=== PATIENT | male | born 1955 | race Caucasian/White ===

== ENCOUNTER → 2018-04-15 | Outpatient (CLI) | payer BC ==
[~2018-04-15] MED LIST: LEVOCETIRIZINE D5 MG PO
--- NOTE | 2018-04-15 15:07 | Diagnostic Imaging Report ---
Thyroid ultrasound History: Thyroid enlargement. Comparison: None Findings: The thyroid echotexture is normal. Vascularity is normal. The right lobe measures 6.0 x 2.0 x 1.5 cm. No evidence of nodule. The left lobe measures 6.6 x 3.2 x 4.3 cm. There is a 4.2 x 2.7 x 3.5 cm solid nodule (2 points). The lesion is heterogeneously isoechoic (1 point), wider than tall (0 points), somewhat ill-defined margins (0 points), and contains no echogenic foci. There is demonstrated doppler flow. The isthmus measures 0.4 cm. No evidence of nodule. Lymph Nodes: No cervical lymph nodes are identified. Parathyroids: Not visualized. IMPRESSION: A 4.2 cm left thyroid nodule is mildly suspicious (TR 3), and FNA is recommended for further evaluation. ACR glossary of thyroid rads TI-RADS 1: No focal lesion. TI-RADS 2: Not suspicious. TI-RADS 3: Mildly suspicious (recommend FNA is greater than or equal to 2.5 cm; follow-up at 1, 3, and 5 years if greater than or equal to 1.5 cm) TI-RADS 4: Moderately Suspicious (recommend FNA is greater than or equal to 1.5 cm; follow-up at 1, 2, 3, and 5 years) TI-RADS 5: Highly suspicious (recommend FNA is greater than or equal to 10 mm) TI-RADS 6: Biopsy-proven malignancy Signed by: Dr. Brian Nieves MD on 04/15/2018 3:03 PM
== END ==
LOC: US 12:23
PROVIDERS: ATTEND Family Medicine
DX: E04.9 Nontoxic goiter, unspecified (principal)
CPT/HCPCS: 76536

== ENCOUNTER → 2018-05-25 | Outpatient (CLI) | payer BC ==
--- NOTE | 2018-05-25 13:44 | Diagnostic Imaging Report ---
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 Blood pressure was monitored at 5 minute intervals. Additional Medications: Lidocaine 1% for local anesthesia Estimated blood loss: Minimal Blood products administered: None Specimens: Fine-needle aspirations x5 Implants: None Consultations: No immediate Condition at completion of procedure: Stable Disposition: Discharged home DISCUSSION: Informed consent was obtained and documented in the medical record after discussion of risks and benefits. The patient was placed in the supine position on the sonographic table. The left cervical region was then prepped and draped in the standard sterile fashion. A suitable percutaneous approach to the left thyroid nodule was identified and 1% lidocaine was infiltrated into the skin and subcutaneous tissues for local anesthesia. Then under continuous sonographic guidance, a total of 5 fine needle aspiration specimens were obtained using 25-gauge needles. Specimens were submitted to on-site cytopathology personnel and adequacy was confirmed. At the conclusion of sampling the needle was removed and a sterile dressing was applied. The patient tolerated the procedure well without immediate complication. FINDINGS: Left thyroid nodule. IMPRESSION: Successful ultrasound-guided fine-needle aspiration of left thyroid nodule as above. Signed by: Dr. Tra Holloway M.D. on 05/25/2018 1:40 PM
== END ==
LOC: US 10:45
DX: E04.1 Nontoxic single thyroid nodule (principal)
CPT/HCPCS: 10005; 88172; 88173; 88305

== ENCOUNTER 2020-08-05 15:04 | Inpatient (IN) | payer BC, MEDICARE ==
[~2020-08-05] VITALS: Ht 182.9 cm; Wt 118.6 kg
[2020-08-05] MEDS: DILTIAZEM HCL 125 ML IV SCH (00:10)
[2020-08-05] MEDS ORDERED: ALBUTEROL/IPRATROPIUM 3 ML NEB NEB STA (16:05)
[2020-08-05] MEDS ORDERED: DILTIAZEM HCL 5 MG/ML 5 ML VIAL IV STA (16:11)
[2020-08-05] MEDS ORDERED: DIGOXIN INJ 0.25 MG/ML 2 ML AMP IV STA (16:11)
[2020-08-05 16:45] LABS: BASOPHILS # (AUTO) 0.2 (0.0-0.1); EOSINOPHILS # (AUTO) 0.3 (0.0-0.4); EOSINOPHILS % 1.8 % (0.0-6.0); HEMATOCRIT 51.6 % (38.2-49.6); HEMOGLOBIN 16.7 g/dL (14.0-18.0); LYMPHOCYTES # (AUTO) 1.3 (1.0-3.2); LYMPHOCYTES % 8.7 % (18.0-39.1); MEAN CORPUSCULAR HEMOGLOBIN 28.1 pg (28-32); MEAN CORPUSCULAR HGB CONC 32.4 g/dL (31-35); MEAN CORPUSCULAR VOLUME 86.7 fL (81-99); MONOCYTES # (AUTO) 2.1 (0.2-0.8); MONOCYTES % 13.8 % (4.4-11.3); NEUTROPHILS # (AUTO) 11.4 (2.1-6.9); NEUTROPHILS % 73.9 % (38.7-80.0); PLATELET COUNT 526 x10e3/uL (140-360); RED BLOOD COUNT 5.95 x10e6/uL (4.3-5.7); RED CELL DISTRIBUTION WIDTH 14.6 % (11.7-14.4)
[2020-08-05] MEDS ORDERED: METOPROLOL TARTRATE INJ 1 MG/ML VIAL IV ONE (17:00)
[2020-08-05] MEDS ORDERED: ASPIRIN 81 MG CHEW TAB PO ONE (17:00)
[2020-08-05 17:08] LABS: ALANINE AMINOTRANSFERASE 16 IU/L (0-55); ALBUMIN 3.8 g/dL (3.5-5.0); ALBUMIN/GLOBULIN RATIO 0.8 (0.8-2.0); ALKALINE PHOSPHATASE 136 IU/L (40-150); ANION GAP 14.7 mmol/L (8-16); BLOOD UREA NITROGEN 14 mg/dL (7-26); BUN/CREATININE RATIO 15 (6-25); CALCIUM 9.8 mg/dL (8.4-10.2); CARBON DIOXIDE 27 mmol/L (22-29); CHLORIDE 103 mmol/L (98-107); CREATINE KINASE 11 IU/L (30-200); CREATININE, SERUM 0.96 mg/dL (0.72-1.25); EST GLOMERULAR FILTRATION RATE 79 ML/MIN (60-); GLUCOSE 79 mg/dL (74-118); POTASSIUM 3.7 mmol/L (3.5-5.1); SODIUM 141 mmol/L (136-145)
[2020-08-05] MEDS ORDERED: SODIUM CHLORIDE 0.9% 50ML 50 ML ONE (18:00)
[2020-08-05] MEDS ORDERED: IOPAMIDOL 370 MG/ML 200 ML INFUS..BTL INJ ONE (18:00)
[2020-08-05] MEDS ORDERED: MIRTAZAPINE15 MG PO (18:28)
[2020-08-05] MEDS ORDERED: TAMSULOSIN PO (18:28)
[2020-08-05] MEDS ORDERED: VIMPAT50 MG (18:28)
[2020-08-05] MEDS ORDERED: FLUTICASONE PRO16 GM (18:28)
[2020-08-05] MEDS ORDERED: SERTRALINE HCL50 MG (18:28)
[2020-08-05] MEDS ORDERED: GABAPENTIN100 MG (18:28)
[2020-08-05] MEDS ORDERED: TRAZODONE HCL50 MG (18:28)
[2020-08-05] MEDS ORDERED: FAMOTIDINE20 MG (18:28)
[2020-08-05] MEDS ORDERED: MONTELUKAST SOD10 MG PO (18:28)
[2020-08-05] MEDS ORDERED: VENLAFAXINE HCL75 M2 PO (18:35)
[2020-08-05] MEDS ORDERED: GABAPENTIN300 MG PO (18:35)
[2020-08-05] MEDS ORDERED: VIMPAT50 MG PO (18:35)
[2020-08-05] MEDS ORDERED: BUSPIRONE HCL5 MG PO (18:35)
[2020-08-05] MEDS ORDERED: ALBUTEROL0.63 MG/3 NEB (18:35)
[2020-08-05] MEDS ORDERED: METOPROLOL TARTRATE 50 MG TAB PO SCH (20:00)
[2020-08-05] MEDS ORDERED: LEVALBUTEROL HCL SOLN NEBU 0.63 MG/3 ML NEB INH PRN (21:45)
[2020-08-05] MEDS ORDERED: AZITHROMYCIN 500MG/NS 250 ML 250 ML IV ONE (21:45)
[2020-08-05] MEDS ORDERED: ENOXAPARIN INJ 80 MG/0.8 ML SYR SC SCH (21:54)
[2020-08-05] MEDS: CEFTRIAXONE 1 GM in SODIUM CHLORIDE 0.9% 50ML 50 ML IV SCH (22:56)
[2020-08-05] MEDS: METHYLPREDNISOLONE SOD SUCC 40 MG/ML VIAL 1ML IV SCH (22:56)
[2020-08-05] MEDS ORDERED: SODIUM CHLORIDE 0.9% 250ML 250 ML ONE (23:45)
[2020-08-06] VITALS (20 sets, daily range): BP systolic 97–135; BP diastolic 68–96
[2020-08-06] MEDS ORDERED: METOPROLOL TARTRATE 50 MG TAB PO SCH
[2020-08-06] MEDS ORDERED: DILTIAZEM HCL IV 5MG/ML 25 ML VIAL ONE (00:16)
[2020-08-06] MEDS ORDERED: SODIUM CHLORIDE 0.9% 100 ML ONE (00:16)
[2020-08-06 01:14] LABS: CREATINE KINASE 15 IU/L (30-200)
[2020-08-06] MEDS: LACOSAMIDE 50 MG TABLET PO SCH ×3 (01:15→21:31)
[2020-08-06] MEDS: GABAPENTIN 300 MG CAP PO SCH ×3 (01:15→21:31)
[2020-08-06] MEDS ORDERED: BUSPIRONE HCL5 MG PO (01:32)
[2020-08-06] MEDS ORDERED: VITAMIN D32400 UNIT/ PO (01:32)
[2020-08-06] MEDS ORDERED: VITAMIN D3 COM1 EACH PO (01:32)
[2020-08-06] MEDS ORDERED: MULTIVITAMINS1 EAC6 PO (01:32)
[2020-08-06] MEDS ORDERED: VIMPAT50 MG PO (01:32)
[2020-08-06] MEDS: LEVALBUTEROL HCL SOLN NEBU 0.63 MG/3 ML NEB INH SCH ×4 (02:00→20:21)
[2020-08-06] MEDS: METHYLPREDNISOLONE SOD SUCC 40 MG/ML VIAL 1ML IV SCH ×3 (05:41→22:00)
[2020-08-06 05:53] LABS: ALBUMIN 3.5 g/dL (3.5-5.0); ALBUMIN/GLOBULIN RATIO 0.8 (0.8-2.0); ANION GAP 15.4 mmol/L (8-16); CREATININE, SERUM 0.86 mg/dL (0.72-1.25); POTASSIUM 4.4 mmol/L (3.5-5.1)
[2020-08-06 07:37] LABS: BASOPHILS # (AUTO) 0.1 (0.0-0.1); BASOPHILS % 0.4 % (0.0-1.0); EOSINOPHILS % 0.1 % (0.0-6.0); HEMATOCRIT 47.5 % (38.2-49.6); HEMOGLOBIN 15.7 g/dL (14.0-18.0); LYMPHOCYTES # (AUTO) 0.6 (1.0-3.2); LYMPHOCYTES % 5.2 % (18.0-39.1); MEAN CORPUSCULAR HEMOGLOBIN 28.2 pg (28-32); MEAN CORPUSCULAR HGB CONC 33.1 g/dL (31-35); MEAN CORPUSCULAR VOLUME 85.4 fL (81-99); MONOCYTES # (AUTO) 0.3 (0.2-0.8); MONOCYTES % 2.1 % (4.4-11.3); NEUTROPHILS # (AUTO) 11.3 (2.1-6.9); NEUTROPHILS % 91.4 % (38.7-80.0); PLATELET COUNT 433 x10e3/uL (140-360); RED BLOOD COUNT 5.56 x10e6/uL (4.3-5.7); RED CELL DISTRIBUTION WIDTH 14.7 % (11.7-14.4)
[2020-08-06] MEDS ORDERED: ALBUTEROL SULF 0.083% NEB SOLN 3 ML NEB NEB PRN (08:00)
[2020-08-06] MEDS ORDERED: GABAPENTIN 300 MG CAP PO SCH (09:00)
[2020-08-06] MEDS ORDERED: ASPIRIN 325 MG TAB PO SCH (09:00)
[2020-08-06] MEDS ORDERED: AMIODARONE HCL 200 MG TAB PO SCH (09:00)
[2020-08-06] MEDS: BUSPIRONE HCL 5 MG TAB PO SCH ×2 (09:13→16:23)
[2020-08-06] MEDS: AMIODARONE HCL 200 MG TAB PO SCH ×3 (09:13→21:31)
[2020-08-06] MEDS: VENLAFAXINE HCL 75 MG CAPCR PO SCH ×2 (09:14→16:24)
[2020-08-06 09:51] LABS: LYMPHOCYTES % (MANUAL) 4 % (19-48); MONOCYTES % (MANUAL) 1 % (3.4-9.0); NEUTROPHILS % (MANUAL) 95 % (40-74)
[2020-08-06 09:53] LABS: PLATELET ESTIMATE ADEQUATE; PLATELET MORPHOLOGY COMMENT NORMAL; RBC MORPHOLOGY COMMENT NORMAL
[2020-08-06 10:25] LABS: CREATINE KINASE 14 IU/L (30-200)
[2020-08-06] MEDS: DILTIAZEM HCL 60 MG TAB PO SCH ×2 (12:16→17:18)
[2020-08-06] MEDS: DILTIAZEM HCL 125 ML IV SCH (16:32)
[2020-08-06] MEDS: CEFTRIAXONE 1 GM in SODIUM CHLORIDE 0.9% 50ML 50 ML IV SCH (21:31)
[2020-08-06] MEDS: MONTELUKAST SODIUM 10 MG TAB PO SCH (21:31)
[2020-08-07] VITALS (26 sets, daily range): BP systolic 88–127; BP diastolic 62–87
[2020-08-07] MEDS: DILTIAZEM HCL 60 MG TAB PO SCH ×4 (00:05→17:28)
[2020-08-07] MEDS: LEVALBUTEROL HCL SOLN NEBU 0.63 MG/3 ML NEB INH SCH ×4 (02:00→20:15)
[2020-08-07 05:20] LABS: BASOPHILS % 0.2 % (0.0-1.0); HEMATOCRIT 47.5 % (38.2-49.6); HEMOGLOBIN 15.7 g/dL (14.0-18.0); LYMPHOCYTES # (AUTO) 0.7 (1.0-3.2); LYMPHOCYTES % 3.8 % (18.0-39.1); MEAN CORPUSCULAR HEMOGLOBIN 28.2 pg (28-32); MEAN CORPUSCULAR HGB CONC 33.1 g/dL (31-35); MEAN CORPUSCULAR VOLUME 85.4 fL (81-99); MONOCYTES % 5.4 % (4.4-11.3); NEUTROPHILS # (AUTO) 16.6 (2.1-6.9); PLATELET COUNT 461 x10e3/uL (140-360); RED BLOOD COUNT 5.56 x10e6/uL (4.3-5.7); RED CELL DISTRIBUTION WIDTH 14.6 % (11.7-14.4)
[2020-08-07] MEDS: METHYLPREDNISOLONE SOD SUCC 40 MG/ML VIAL 1ML IV SCH ×3 (05:59→21:45)
[2020-08-07 06:11] LABS: ALBUMIN 3.5 g/dL (3.5-5.0); ALBUMIN/GLOBULIN RATIO 0.9 (0.8-2.0); CALCIUM 8.9 mg/dL (8.4-10.2); CREATININE, SERUM 1.07 mg/dL (0.72-1.25)
[2020-08-07] MEDS: GABAPENTIN 300 MG CAP PO SCH ×2 (08:17→21:45)
[2020-08-07] MEDS: VENLAFAXINE HCL 75 MG CAPCR PO SCH ×2 (08:17→16:25)
[2020-08-07] MEDS: AMIODARONE HCL 200 MG TAB PO SCH ×3 (08:17→21:45)
[2020-08-07] MEDS: LACOSAMIDE 50 MG TABLET PO SCH ×2 (08:17→21:45)
[2020-08-07] MEDS: BUSPIRONE HCL 5 MG TAB PO SCH ×2 (08:17→16:25)
[2020-08-07] MEDS: CEFTRIAXONE 1 GM in SODIUM CHLORIDE 0.9% 50ML 50 ML IV SCH (21:45)
[2020-08-07] MEDS: MONTELUKAST SODIUM 10 MG TAB PO SCH (21:45)
[2020-08-08] VITALS (21 sets, daily range): BP systolic 91–129; BP diastolic 67–93
[2020-08-08] MEDS: DILTIAZEM HCL 60 MG TAB PO SCH ×4 (00:02→16:31)
[2020-08-08] MEDS: LEVALBUTEROL HCL SOLN NEBU 0.63 MG/3 ML NEB INH SCH ×4 (03:10→20:15)
[2020-08-08] MEDS: METHYLPREDNISOLONE SOD SUCC 40 MG/ML VIAL 1ML IV SCH ×3 (05:50→23:25)
[2020-08-08 06:12] LABS: BASOPHILS % 0.2 % (0.0-1.0); HEMATOCRIT 45.8 % (38.2-49.6); LYMPHOCYTES # (AUTO) 0.4 (1.0-3.2); LYMPHOCYTES % 2.4 % (18.0-39.1); MEAN CORPUSCULAR HEMOGLOBIN 28.1 pg (28-32); MEAN CORPUSCULAR HGB CONC 32.8 g/dL (31-35); MEAN CORPUSCULAR VOLUME 85.9 fL (81-99); MONOCYTES % 5.8 % (4.4-11.3); NEUTROPHILS # (AUTO) 14.9 (2.1-6.9); NEUTROPHILS % 90.6 % (38.7-80.0); PLATELET COUNT 383 x10e3/uL (140-360); RED BLOOD COUNT 5.33 x10e6/uL (4.3-5.7); RED CELL DISTRIBUTION WIDTH 14.7 % (11.7-14.4)
[2020-08-08 06:59] LABS: ALBUMIN 3.5 g/dL (3.5-5.0); ALBUMIN/GLOBULIN RATIO 0.9 (0.8-2.0); ANION GAP 14.2 mmol/L (8-16); CALCIUM 8.3 mg/dL (8.4-10.2); CREATININE, SERUM 0.94 mg/dL (0.72-1.25); POTASSIUM 4.2 mmol/L (3.5-5.1)
[2020-08-08] MEDS: BUSPIRONE HCL 5 MG TAB PO SCH ×2 (09:12→16:25)
[2020-08-08] MEDS: VENLAFAXINE HCL 75 MG CAPCR PO SCH ×2 (09:12→16:25)
[2020-08-08] MEDS: LACOSAMIDE 50 MG TABLET PO SCH ×2 (09:12→20:41)
[2020-08-08] MEDS: GABAPENTIN 300 MG CAP PO SCH ×2 (09:12→20:41)
[2020-08-08] MEDS: AMIODARONE HCL 200 MG TAB PO SCH ×3 (09:12→20:41)
[2020-08-08] MEDS ORDERED: DIGOXIN INJ 0.25 MG/ML 2 ML AMP IV ONE (09:30)
[2020-08-08 10:02] LABS: INR 1.26; PROTHROMBIN TIME 16.5 seconds (11.9-14.5)
[2020-08-08] MEDS ORDERED: MIDAZOLAM HCL 2 MG/2 ML VIAL ONE (10:28)
[2020-08-08] MEDS ORDERED: FENTANYL CITRATE/PF 100MCG/2 ML INJ ONE (10:28)
[2020-08-08] MEDS: CEFTRIAXONE 1 GM in SODIUM CHLORIDE 0.9% 50ML 50 ML IV SCH (20:39)
[2020-08-08] MEDS: MONTELUKAST SODIUM 10 MG TAB PO SCH (20:41)
[2020-08-08] MEDS ORDERED: SODIUM CHLORIDE 0.9% 250ML 250 ML ONE (20:52)
[2020-08-09] VITALS (9 sets, daily range): BP systolic 99–139; BP diastolic 50–95
[2020-08-09] MEDS: DILTIAZEM HCL 60 MG TAB PO SCH ×4 (00:43→17:29)
[2020-08-09] MEDS: LEVALBUTEROL HCL SOLN NEBU 0.63 MG/3 ML NEB INH SCH ×4 (02:00→21:15)
[2020-08-09 05:04] LABS: BASOPHILS % 0.2 % (0.0-1.0); HEMATOCRIT 46.4 % (38.2-49.6); HEMOGLOBIN 15.2 g/dL (14.0-18.0); LYMPHOCYTES # (AUTO) 0.3 (1.0-3.2); LYMPHOCYTES % 2.3 % (18.0-39.1); MEAN CORPUSCULAR HEMOGLOBIN 28.4 pg (28-32); MEAN CORPUSCULAR HGB CONC 32.8 g/dL (31-35); MEAN CORPUSCULAR VOLUME 86.6 fL (81-99); MONOCYTES # (AUTO) 0.9 (0.2-0.8); MONOCYTES % 6.6 % (4.4-11.3); NEUTROPHILS # (AUTO) 12.8 (2.1-6.9); NEUTROPHILS % 90.1 % (38.7-80.0); PLATELET COUNT 382 x10e3/uL (140-360); RED BLOOD COUNT 5.36 x10e6/uL (4.3-5.7); RED CELL DISTRIBUTION WIDTH 14.9 % (11.7-14.4)
[2020-08-09 05:28] LABS: ALBUMIN 3.5 g/dL (3.5-5.0); ANION GAP 13.3 mmol/L (8-16); CALCIUM 8.9 mg/dL (8.4-10.2); CREATININE, SERUM 0.98 mg/dL (0.72-1.25); POTASSIUM 4.3 mmol/L (3.5-5.1)
[2020-08-09] MEDS: METHYLPREDNISOLONE SOD SUCC 40 MG/ML VIAL 1ML IV SCH ×3 (05:59→22:04)
[2020-08-09] MEDS: BUSPIRONE HCL 5 MG TAB PO SCH ×2 (09:03→17:28)
[2020-08-09] MEDS: AMIODARONE HCL 200 MG TAB PO SCH ×3 (09:03→20:20)
[2020-08-09] MEDS: VENLAFAXINE HCL 75 MG CAPCR PO SCH ×2 (09:03→17:28)
[2020-08-09] MEDS: DIGOXIN 0.125 MG TAB PO SCH (09:04)
[2020-08-09] MEDS: GABAPENTIN 300 MG CAP PO SCH ×2 (09:05→20:19)
[2020-08-09] MEDS: LACOSAMIDE 50 MG TABLET PO SCH ×2 (09:05→20:19)
[2020-08-09] MEDS: MONTELUKAST SODIUM 10 MG TAB PO SCH (20:19)
[2020-08-09] MEDS: CEFTRIAXONE 1 GM in SODIUM CHLORIDE 0.9% 50ML 50 ML IV SCH (20:20)
[2020-08-10] MEDS: LEVALBUTEROL HCL SOLN NEBU 0.63 MG/3 ML NEB INH SCH ×4 (03:00→19:10)
[2020-08-10 04:30] VITALS: BP 111/93
[2020-08-10 04:48] LABS: BASOPHILS % 0.1 % (0.0-1.0); HEMATOCRIT 46.4 % (38.2-49.6); HEMOGLOBIN 15.2 g/dL (14.0-18.0); LYMPHOCYTES # (AUTO) 0.4 (1.0-3.2); LYMPHOCYTES % 2.6 % (18.0-39.1); MEAN CORPUSCULAR HEMOGLOBIN 28.3 pg (28-32); MEAN CORPUSCULAR HGB CONC 32.8 g/dL (31-35); MEAN CORPUSCULAR VOLUME 86.2 fL (81-99); MONOCYTES # (AUTO) 1.4 (0.2-0.8); MONOCYTES % 10.2 % (4.4-11.3); NEUTROPHILS # (AUTO) 12.1 (2.1-6.9); PLATELET COUNT 367 x10e3/uL (140-360); RED BLOOD COUNT 5.38 x10e6/uL (4.3-5.7)
[2020-08-10 05:03] LABS: ALBUMIN 3.5 g/dL (3.5-5.0); ALBUMIN/GLOBULIN RATIO 1.1 (0.8-2.0); ANION GAP 13.3 mmol/L (8-16); CALCIUM 8.5 mg/dL (8.4-10.2); POTASSIUM 4.3 mmol/L (3.5-5.1)
[2020-08-10] MEDS: METHYLPREDNISOLONE SOD SUCC 40 MG/ML VIAL 1ML IV SCH ×3 (05:13→21:04)
[2020-08-10] MEDS: DILTIAZEM HCL 60 MG TAB PO SCH ×5 (05:17→23:45)
[2020-08-10 08:12] VITALS: BP 117/88
[2020-08-10 08:32] VITALS: BP 117/88
[2020-08-10] MEDS: AMIODARONE HCL 200 MG TAB PO SCH ×3 (09:00→21:04)
[2020-08-10] MEDS: BUSPIRONE HCL 5 MG TAB PO SCH ×2 (09:00→16:02)
[2020-08-10] MEDS: VENLAFAXINE HCL 75 MG CAPCR PO SCH ×2 (09:00→16:02)
[2020-08-10] MEDS: LACOSAMIDE 50 MG TABLET PO SCH ×2 (09:01→21:04)
[2020-08-10] MEDS: GABAPENTIN 300 MG CAP PO SCH ×2 (09:01→21:04)
[2020-08-10] MEDS: DIGOXIN 0.125 MG TAB PO SCH (09:01)
[2020-08-10 11:25] VITALS: BP 116/79
[2020-08-10] MEDS ORDERED: FUROSEMIDE INJ 10 MG/ML 4 ML VIAL IV ONE (11:30)
[2020-08-10] MEDS: ENOXAPARIN SOD INJ 60 MG/0.6 ML SYR SC SCH (16:03)
[2020-08-10 19:55] VITALS: BP 106/83
[2020-08-10 20:00] VITALS: BP 106/83
[2020-08-10] MEDS: MONTELUKAST SODIUM 10 MG TAB PO SCH (21:04)
[2020-08-10] MEDS: CEFTRIAXONE 1 GM in SODIUM CHLORIDE 0.9% 50ML 50 ML IV SCH (21:04)
[2020-08-11] VITALS (8 sets, daily range): BP systolic 98–115; BP diastolic 62–79
[2020-08-11] MEDS: LEVALBUTEROL HCL SOLN NEBU 0.63 MG/3 ML NEB INH SCH ×4 (01:30→19:32)
[2020-08-11 05:16] LABS: BASOPHILS % 0.2 % (0.0-1.0); HEMATOCRIT 47.5 % (38.2-49.6); HEMOGLOBIN 15.1 g/dL (14.0-18.0); LYMPHOCYTES # (AUTO) 0.3 (1.0-3.2); LYMPHOCYTES % 2.2 % (18.0-39.1); MEAN CORPUSCULAR HEMOGLOBIN 27.8 pg (28-32); MEAN CORPUSCULAR HGB CONC 31.8 g/dL (31-35); MEAN CORPUSCULAR VOLUME 87.3 fL (81-99); MONOCYTES # (AUTO) 0.9 (0.2-0.8); MONOCYTES % 6.7 % (4.4-11.3); NEUTROPHILS # (AUTO) 11.6 (2.1-6.9); NEUTROPHILS % 89.9 % (38.7-80.0); PLATELET COUNT 315 x10e3/uL (140-360); RED BLOOD COUNT 5.44 x10e6/uL (4.3-5.7); RED CELL DISTRIBUTION WIDTH 14.9 % (11.7-14.4)
[2020-08-11] MEDS: METHYLPREDNISOLONE SOD SUCC 40 MG/ML VIAL 1ML IV SCH ×3 (05:23→22:00)
[2020-08-11] MEDS: DILTIAZEM HCL 60 MG TAB PO SCH ×3 (05:36→17:45)
[2020-08-11 05:40] LABS: ALBUMIN 3.4 g/dL (3.5-5.0); ALBUMIN/GLOBULIN RATIO 1.1 (0.8-2.0); ANION GAP 11.7 mmol/L (8-16); CALCIUM 8.4 mg/dL (8.4-10.2); POTASSIUM 4.7 mmol/L (3.5-5.1)
[2020-08-11] MEDS: BUSPIRONE HCL 5 MG TAB PO SCH ×2 (07:56→16:55)
[2020-08-11] MEDS: GABAPENTIN 300 MG CAP PO SCH ×2 (07:56→21:06)
[2020-08-11] MEDS: ENOXAPARIN SOD INJ 60 MG/0.6 ML SYR SC SCH ×2 (07:56→16:55)
[2020-08-11] MEDS: DIGOXIN 0.125 MG TAB PO SCH (07:56)
[2020-08-11] MEDS: VENLAFAXINE HCL 75 MG CAPCR PO SCH ×2 (07:56→16:55)
[2020-08-11] MEDS: LACOSAMIDE 50 MG TABLET PO SCH ×2 (07:56→21:06)
[2020-08-11] MEDS: AMIODARONE HCL 200 MG TAB PO SCH ×3 (07:56→21:06)
[2020-08-11] MEDS ORDERED: FUROSEMIDE INJ 10 MG/ML 4 ML VIAL IV ONE (10:30)
[2020-08-11] MEDS ORDERED: POTASSIUM CHLORIDE 10MEQ EA PO ONE (10:30)
[2020-08-11] MEDS ORDERED: MAGNESIUM HYDROXIDE 30 ML UDC PO PRN (10:30)
[2020-08-11] MEDS: SENNA-S TABLET PO SCH (16:55)
[2020-08-11] MEDS: TAMSULOSIN HCL 0.4 MG CAP PO SCH (16:55)
[2020-08-11] MEDS: CEFTRIAXONE 1 GM in SODIUM CHLORIDE 0.9% 50ML 50 ML IV SCH (21:06)
[2020-08-11] MEDS: MONTELUKAST SODIUM 10 MG TAB PO SCH (21:06)
[2020-08-12] VITALS (9 sets, daily range): BP systolic 96–124; BP diastolic 62–97
[2020-08-12] MEDS: LEVALBUTEROL HCL SOLN NEBU 0.63 MG/3 ML NEB INH SCH ×4 (01:15→18:50)
[2020-08-12] MEDS: METHYLPREDNISOLONE SOD SUCC 40 MG/ML VIAL 1ML IV SCH ×2 (05:42→14:00)
[2020-08-12] MEDS: DILTIAZEM HCL 60 MG TAB PO SCH ×4 (05:43→17:54)
[2020-08-12] MEDS: GABAPENTIN 300 MG CAP PO SCH ×2 (09:00→20:26)
[2020-08-12] MEDS: ENOXAPARIN SOD INJ 60 MG/0.6 ML SYR SC SCH ×2 (09:00→16:54)
[2020-08-12] MEDS: DIGOXIN 0.125 MG TAB PO SCH (09:00)
[2020-08-12] MEDS: AMIODARONE HCL 200 MG TAB PO SCH ×3 (09:00→20:26)
[2020-08-12] MEDS: BUSPIRONE HCL 5 MG TAB PO SCH ×2 (09:00→16:54)
[2020-08-12] MEDS: LACOSAMIDE 50 MG TABLET PO SCH ×2 (09:00→20:28)
[2020-08-12] MEDS: VENLAFAXINE HCL 75 MG CAPCR PO SCH ×2 (09:00→16:54)
[2020-08-12] MEDS: FUROSEMIDE 40 MG TAB PO SCH (11:30)
[2020-08-12] MEDS: SENNA-S TABLET PO SCH ×2 (11:51→16:54)
[2020-08-12] MEDS: TAMSULOSIN HCL 0.4 MG CAP PO SCH (16:54)
[2020-08-12] MEDS: CEFTRIAXONE 1 GM in SODIUM CHLORIDE 0.9% 50ML 50 ML IV SCH (20:23)
[2020-08-12] MEDS: MONTELUKAST SODIUM 10 MG TAB PO SCH (20:28)
[2020-08-13] VITALS (7 sets, daily range): BP systolic 95–118; BP diastolic 64–99
[2020-08-13] MEDS: LEVALBUTEROL HCL SOLN NEBU 0.63 MG/3 ML NEB INH SCH ×4 (00:25→19:32)
[2020-08-13] MEDS: DILTIAZEM HCL 60 MG TAB PO SCH ×3 (02:16→06:00)
[2020-08-13 04:53] LABS: BASOPHILS % 0.2 % (0.0-1.0); HEMATOCRIT 48.4 % (38.2-49.6); HEMOGLOBIN 15.9 g/dL (14.0-18.0); LYMPHOCYTES # (AUTO) 0.2 (1.0-3.2); LYMPHOCYTES % 1.7 % (18.0-39.1); MEAN CORPUSCULAR HEMOGLOBIN 28.2 pg (28-32); MEAN CORPUSCULAR HGB CONC 32.9 g/dL (31-35); MONOCYTES % 6.7 % (4.4-11.3); NEUTROPHILS # (AUTO) 12.8 (2.1-6.9); NEUTROPHILS % 90.2 % (38.7-80.0); PLATELET COUNT 303 x10e3/uL (140-360); RED BLOOD COUNT 5.63 x10e6/uL (4.3-5.7); RED CELL DISTRIBUTION WIDTH 14.8 % (11.7-14.4)
[2020-08-13 05:24] LABS: ALBUMIN 3.5 g/dL (3.5-5.0); ALBUMIN/GLOBULIN RATIO 1.2 (0.8-2.0); ANION GAP 14.1 mmol/L (8-16); CALCIUM 8.2 mg/dL (8.4-10.2); CREATININE, SERUM 0.86 mg/dL (0.72-1.25); POTASSIUM 4.1 mmol/L (3.5-5.1)
[2020-08-13 05:31] LABS: DIGOXIN 0.39 ng/mL (0.8-2.0); THYROID STIMULATING HORMONE 0.391 uIU/mL (0.350-4.940)
[2020-08-13] MEDS ORDERED: DIGOXIN INJ 0.25 MG/ML 2 ML AMP IV ONE (09:20)
[2020-08-13] MEDS ORDERED: VANCOMYCIN 1GM/NS 250 ML 250 ML IV SCH (09:30)
[2020-08-13] MEDS: BUSPIRONE HCL 5 MG TAB PO SCH ×2 (10:06→17:14)
[2020-08-13] MEDS: PREDNISONE 10 MG TAB PO SCH ×2 (10:07→17:14)
[2020-08-13] MEDS: FUROSEMIDE 40 MG TAB PO SCH (10:07)
[2020-08-13] MEDS: DIGOXIN 0.125 MG TAB PO SCH (10:07)
[2020-08-13] MEDS: GABAPENTIN 300 MG CAP PO SCH ×2 (10:07→21:04)
[2020-08-13] MEDS: AMIODARONE HCL 200 MG TAB PO SCH (10:07)
[2020-08-13] MEDS: DILTIAZEM HCL ER 120 MG CAP PO SCH (10:08)
[2020-08-13] MEDS: ENOXAPARIN SOD INJ 60 MG/0.6 ML SYR SC SCH ×2 (10:08→17:14)
[2020-08-13] MEDS: SENNA-S TABLET PO SCH ×2 (10:08→17:14)
[2020-08-13] MEDS: LACOSAMIDE 50 MG TABLET PO SCH ×2 (10:08→21:05)
[2020-08-13] MEDS: VENLAFAXINE HCL 75 MG CAPCR PO SCH ×2 (10:08→17:14)
[2020-08-13] MEDS: Vancomycin IV 1 GM in SODIUM CHLORIDE 0.9% 250ML 250 ML IV SCH ×2 (10:29→21:05)
[2020-08-13] MEDS: TAMSULOSIN HCL 0.4 MG CAP PO SCH (17:14)
[2020-08-13] MEDS: MONTELUKAST SODIUM 10 MG TAB PO SCH (21:05)
[2020-08-14] VITALS (9 sets, daily range): BP systolic 95–120; BP diastolic 65–90
[2020-08-14] MEDS: LEVALBUTEROL HCL SOLN NEBU 0.63 MG/3 ML NEB INH SCH ×4 (00:50→19:30)
[2020-08-14 05:44] LABS: BASOPHILS % 0.2 % (0.0-1.0); EOSINOPHILS % 0.1 % (0.0-6.0); HEMATOCRIT 47.6 % (38.2-49.6); HEMOGLOBIN 15.6 g/dL (14.0-18.0); LYMPHOCYTES # (AUTO) 0.5 (1.0-3.2); LYMPHOCYTES % 3.1 % (18.0-39.1); MEAN CORPUSCULAR HEMOGLOBIN 28.3 pg (28-32); MEAN CORPUSCULAR HGB CONC 32.8 g/dL (31-35); MEAN CORPUSCULAR VOLUME 86.4 fL (81-99); MONOCYTES # (AUTO) 1.7 (0.2-0.8); MONOCYTES % 10.9 % (4.4-11.3); NEUTROPHILS % 84.2 % (38.7-80.0); PLATELET COUNT 283 x10e3/uL (140-360); RED BLOOD COUNT 5.51 x10e6/uL (4.3-5.7); RED CELL DISTRIBUTION WIDTH 14.8 % (11.7-14.4)
[2020-08-14 06:30] LABS: ANION GAP 11.1 mmol/L (8-16); CALCIUM 7.8 mg/dL (8.4-10.2); CREATININE, SERUM 0.81 mg/dL (0.72-1.25); POTASSIUM 4.1 mmol/L (3.5-5.1)
[2020-08-14] MEDS: AMIODARONE HCL 200 MG TAB PO SCH (09:46)
[2020-08-14] MEDS: DILTIAZEM HCL ER 120 MG CAP PO SCH (09:46)
[2020-08-14] MEDS: ENOXAPARIN SOD INJ 60 MG/0.6 ML SYR SC SCH ×2 (09:46→17:16)
[2020-08-14] MEDS: BUSPIRONE HCL 5 MG TAB PO SCH ×2 (09:46→17:16)
[2020-08-14] MEDS: PREDNISONE 10 MG TAB PO SCH ×2 (09:46→17:16)
[2020-08-14] MEDS: GABAPENTIN 300 MG CAP PO SCH ×2 (09:46→21:45)
[2020-08-14] MEDS: Vancomycin IV 1 GM in SODIUM CHLORIDE 0.9% 250ML 250 ML IV SCH ×2 (09:46→23:23)
[2020-08-14] MEDS: VENLAFAXINE HCL 75 MG CAPCR PO SCH ×2 (09:46→17:16)
[2020-08-14] MEDS: DIGOXIN 0.125 MG TAB PO SCH (09:46)
[2020-08-14] MEDS: SENNA-S TABLET PO SCH ×2 (09:46→17:16)
[2020-08-14] MEDS: LACOSAMIDE 50 MG TABLET PO SCH ×2 (09:50→21:45)
[2020-08-14] MEDS: FUROSEMIDE 40 MG TAB PO SCH (09:50)
[2020-08-14] MEDS: TAMSULOSIN HCL 0.4 MG CAP PO SCH (17:16)
[2020-08-14] MEDS: MONTELUKAST SODIUM 10 MG TAB PO SCH (21:45)
[2020-08-15] VITALS (8 sets, daily range): BP systolic 95–111; BP diastolic 67–82
[2020-08-15] MEDS: LEVALBUTEROL HCL SOLN NEBU 0.63 MG/3 ML NEB INH SCH ×4 (01:25→19:20)
[2020-08-15] MEDS ORDERED: SODIUM CHLORIDE 0.9% 250ML 250 ML ONE (08:49)
[2020-08-15] MEDS: FUROSEMIDE 40 MG TAB PO SCH ×2 (08:51→16:12)
[2020-08-15] MEDS: ENOXAPARIN SOD INJ 60 MG/0.6 ML SYR SC SCH ×2 (08:51→16:12)
[2020-08-15] MEDS: AMIODARONE HCL 200 MG TAB PO SCH (08:51)
[2020-08-15] MEDS: GABAPENTIN 300 MG CAP PO SCH ×2 (08:51→21:35)
[2020-08-15] MEDS: SENNA-S TABLET PO SCH ×2 (08:51→16:12)
[2020-08-15] MEDS: DIGOXIN 0.125 MG TAB PO SCH (08:51)
[2020-08-15] MEDS: BUSPIRONE HCL 5 MG TAB PO SCH ×2 (08:51→16:12)
[2020-08-15] MEDS: Vancomycin IV 1 GM in SODIUM CHLORIDE 0.9% 250ML 250 ML IV SCH ×2 (08:51→22:18)
[2020-08-15] MEDS: PREDNISONE 10 MG TAB PO SCH (08:51)
[2020-08-15] MEDS: DILTIAZEM HCL ER 120 MG CAP PO SCH (08:51)
[2020-08-15] MEDS: LACOSAMIDE 50 MG TABLET PO SCH ×2 (08:51→21:35)
[2020-08-15] MEDS: VENLAFAXINE HCL 75 MG CAPCR PO SCH ×2 (09:00→16:12)
[2020-08-15] MEDS ORDERED: FUROSEMIDE INJ 10 MG/ML 4 ML VIAL IV ONE (10:30)
[2020-08-15] MEDS: METHYLPREDNISOLONE SOD SUCC 125 MG/2ML VIAL IV SCH ×2 (12:30→21:35)
[2020-08-15] MEDS: TAMSULOSIN HCL 0.4 MG CAP PO SCH (16:12)
[2020-08-15] MEDS: MONTELUKAST SODIUM 10 MG TAB PO SCH (21:35)
[2020-08-16] VITALS (9 sets, daily range): BP systolic 91–121; BP diastolic 50–88
[2020-08-16] MEDS: LEVALBUTEROL HCL SOLN NEBU 0.63 MG/3 ML NEB INH SCH ×4 (01:15→19:15)
[2020-08-16 05:06] LABS: BASOPHILS % 0.2 % (0.0-1.0); EOSINOPHILS % 0.1 % (0.0-6.0); HEMATOCRIT 49.4 % (38.2-49.6); HEMOGLOBIN 16.6 g/dL (14.0-18.0); LYMPHOCYTES # (AUTO) 0.3 (1.0-3.2); LYMPHOCYTES % 2.2 % (18.0-39.1); MEAN CORPUSCULAR HEMOGLOBIN 28.2 pg (28-32); MEAN CORPUSCULAR HGB CONC 33.6 g/dL (31-35); MEAN CORPUSCULAR VOLUME 83.9 fL (81-99); MONOCYTES % 7.1 % (4.4-11.3); NEUTROPHILS # (AUTO) 12.2 (2.1-6.9); NEUTROPHILS % 88.1 % (38.7-80.0); PLATELET COUNT 298 x10e3/uL (140-360); RED BLOOD COUNT 5.89 x10e6/uL (4.3-5.7); RED CELL DISTRIBUTION WIDTH 14.6 % (11.7-14.4)
[2020-08-16] MEDS: METHYLPREDNISOLONE SOD SUCC 125 MG/2ML VIAL IV SCH ×2 (09:00→20:30)
[2020-08-16] MEDS: ENOXAPARIN SOD INJ 60 MG/0.6 ML SYR SC SCH ×2 (09:00→16:35)
[2020-08-16] MEDS: FUROSEMIDE 40 MG TAB PO SCH ×2 (09:00→16:34)
[2020-08-16] MEDS: DIGOXIN 0.125 MG TAB PO SCH (09:00)
[2020-08-16] MEDS: AMIODARONE HCL 200 MG TAB PO SCH (09:00)
[2020-08-16] MEDS: DILTIAZEM HCL ER 120 MG CAP PO SCH (09:00)
[2020-08-16] MEDS: BUSPIRONE HCL 5 MG TAB PO SCH ×2 (09:00→16:34)
[2020-08-16] MEDS: LACOSAMIDE 50 MG TABLET PO SCH ×2 (09:00→20:30)
[2020-08-16] MEDS: SENNA-S TABLET PO SCH ×2 (09:00→16:34)
[2020-08-16] MEDS: VENLAFAXINE HCL 75 MG CAPCR PO SCH ×2 (09:00→16:34)
[2020-08-16] MEDS: Vancomycin IV 1 GM in SODIUM CHLORIDE 0.9% 250ML 250 ML IV SCH ×2 (10:00→22:33)
[2020-08-16] MEDS: TAMSULOSIN HCL 0.4 MG CAP PO SCH (16:34)
[2020-08-16] MEDS: MONTELUKAST SODIUM 10 MG TAB PO SCH (20:30)
[2020-08-17] VITALS (8 sets, daily range): BP systolic 100–121; BP diastolic 70–86
[2020-08-17] MEDS: LEVALBUTEROL HCL SOLN NEBU 0.63 MG/3 ML NEB INH SCH ×4 (01:10→19:10)
[2020-08-17] MEDS: BUSPIRONE HCL 5 MG TAB PO SCH ×2 (09:39→18:39)
[2020-08-17] MEDS: METHYLPREDNISOLONE SOD SUCC 125 MG/2ML VIAL IV SCH ×2 (09:39→21:27)
[2020-08-17] MEDS: DILTIAZEM HCL ER 120 MG CAP PO SCH (09:40)
[2020-08-17] MEDS: VENLAFAXINE HCL 75 MG CAPCR PO SCH ×2 (09:40→18:40)
[2020-08-17] MEDS: SENNA-S TABLET PO SCH ×2 (09:40→18:40)
[2020-08-17] MEDS: ENOXAPARIN SOD INJ 60 MG/0.6 ML SYR SC SCH (09:40)
[2020-08-17] MEDS: LACOSAMIDE 50 MG TABLET PO SCH ×2 (09:40→21:27)
[2020-08-17] MEDS: DIGOXIN 0.125 MG TAB PO SCH (09:40)
[2020-08-17] MEDS: AMIODARONE HCL 200 MG TAB PO SCH (09:40)
[2020-08-17] MEDS: FUROSEMIDE 40 MG TAB PO SCH ×2 (09:40→18:40)
[2020-08-17] MEDS: Vancomycin IV 1 GM in SODIUM CHLORIDE 0.9% 250ML 250 ML IV SCH ×2 (09:41→21:27)
[2020-08-17] MEDS: TAMSULOSIN HCL 0.4 MG CAP PO SCH (18:40)
[2020-08-17] MEDS: APIXABAN 5 MG TABLET PO SCH (18:40)
[2020-08-17] MEDS: MONTELUKAST SODIUM 10 MG TAB PO SCH (21:27)
[2020-08-18] VITALS (8 sets, daily range): BP systolic 103–133; BP diastolic 60–83
[2020-08-18] MEDS: LEVALBUTEROL HCL SOLN NEBU 0.63 MG/3 ML NEB INH SCH ×4 (01:05→19:20)
[2020-08-18 06:06] LABS: BASOPHILS % 0.2 % (0.0-1.0); HEMATOCRIT 51.2 % (38.2-49.6); HEMOGLOBIN 16.7 g/dL (14.0-18.0); LYMPHOCYTES # (AUTO) 0.3 (1.0-3.2); LYMPHOCYTES % 1.6 % (18.0-39.1); MEAN CORPUSCULAR HEMOGLOBIN 27.9 pg (28-32); MEAN CORPUSCULAR HGB CONC 32.6 g/dL (31-35); MEAN CORPUSCULAR VOLUME 85.5 fL (81-99); MONOCYTES # (AUTO) 0.8 (0.2-0.8); MONOCYTES % 4.8 % (4.4-11.3); NEUTROPHILS # (AUTO) 15.8 (2.1-6.9); NEUTROPHILS % 91.9 % (38.7-80.0); PLATELET COUNT 275 x10e3/uL (140-360); RED BLOOD COUNT 5.99 x10e6/uL (4.3-5.7); RED CELL DISTRIBUTION WIDTH 14.6 % (11.7-14.4)
[2020-08-18] MEDS: METHYLPREDNISOLONE SOD SUCC 125 MG/2ML VIAL IV SCH ×2 (11:25→20:50)
[2020-08-18] MEDS: BUSPIRONE HCL 5 MG TAB PO SCH ×2 (11:25→16:54)
[2020-08-18] MEDS: DIGOXIN 0.125 MG TAB PO SCH (11:26)
[2020-08-18] MEDS: APIXABAN 5 MG TABLET PO SCH ×2 (11:26→16:54)
[2020-08-18] MEDS: VENLAFAXINE HCL 75 MG CAPCR PO SCH ×2 (11:26→16:54)
[2020-08-18] MEDS: Vancomycin IV 1 GM in SODIUM CHLORIDE 0.9% 250ML 250 ML IV SCH ×2 (11:26→20:50)
[2020-08-18] MEDS: AMIODARONE HCL 200 MG TAB PO SCH (11:26)
[2020-08-18] MEDS: LACOSAMIDE 50 MG TABLET PO SCH ×2 (11:26→20:50)
[2020-08-18] MEDS: DILTIAZEM HCL ER 120 MG CAP PO SCH (11:26)
[2020-08-18] MEDS: SENNA-S TABLET PO SCH ×2 (11:26→16:54)
[2020-08-18] MEDS: FUROSEMIDE 40 MG TAB PO SCH ×2 (11:26→16:54)
[2020-08-18] MEDS: TAMSULOSIN HCL 0.4 MG CAP PO SCH (16:54)
[2020-08-18] MEDS: MONTELUKAST SODIUM 10 MG TAB PO SCH (20:50)
[2020-08-19] VITALS (8 sets, daily range): BP systolic 103–131; BP diastolic 71–88
[2020-08-19] MEDS: LEVALBUTEROL HCL SOLN NEBU 0.63 MG/3 ML NEB INH SCH ×4 (01:20→19:25)
[2020-08-19] MEDS: DILTIAZEM HCL ER 120 MG CAP PO SCH (09:31)
[2020-08-19] MEDS: BUSPIRONE HCL 5 MG TAB PO SCH ×2 (09:31→15:40)
[2020-08-19] MEDS: AMIODARONE HCL 200 MG TAB PO SCH (09:31)
[2020-08-19] MEDS: VENLAFAXINE HCL 75 MG CAPCR PO SCH ×2 (09:32→15:40)
[2020-08-19] MEDS: APIXABAN 5 MG TABLET PO SCH ×2 (09:32→15:40)
[2020-08-19] MEDS: DIGOXIN 0.125 MG TAB PO SCH (09:32)
[2020-08-19] MEDS: FUROSEMIDE 40 MG TAB PO SCH ×2 (09:32→15:41)
[2020-08-19] MEDS: LACOSAMIDE 50 MG TABLET PO SCH ×2 (09:33→21:25)
[2020-08-19] MEDS: SENNA-S TABLET PO SCH ×2 (09:33→15:42)
[2020-08-19] MEDS: METHYLPREDNISOLONE SOD SUCC 125 MG/2ML VIAL IV SCH ×2 (09:35→21:25)
[2020-08-19] MEDS: Vancomycin IV 1 GM in SODIUM CHLORIDE 0.9% 250ML 250 ML IV SCH ×2 (10:24→21:25)
[2020-08-19] MEDS: TAMSULOSIN HCL 0.4 MG CAP PO SCH (15:41)
[2020-08-19] MEDS ORDERED: SODIUM CHLORIDE 0.9% 250ML 250 ML ONE (15:45)
[2020-08-19] MEDS: MONTELUKAST SODIUM 10 MG TAB PO SCH (21:25)
[2020-08-20] VITALS: BP 97/57
[2020-08-20] MEDS: LEVALBUTEROL HCL SOLN NEBU 0.63 MG/3 ML NEB INH SCH ×3 (01:30→13:14)
[2020-08-20 04:00] VITALS: BP 93/56
[2020-08-20 05:05] LABS: BASOPHILS % 0.2 % (0.0-1.0); HEMATOCRIT 52.9 % (38.2-49.6); LYMPHOCYTES # (AUTO) 0.2 (1.0-3.2); LYMPHOCYTES % 1.3 % (18.0-39.1); MEAN CORPUSCULAR HEMOGLOBIN 28.5 pg (28-32); MEAN CORPUSCULAR VOLUME 83.8 fL (81-99); MONOCYTES # (AUTO) 1.2 (0.2-0.8); MONOCYTES % 6.4 % (4.4-11.3); NEUTROPHILS # (AUTO) 16.9 (2.1-6.9); NEUTROPHILS % 90.8 % (38.7-80.0); PLATELET COUNT 252 x10e3/uL (140-360); RED BLOOD COUNT 6.31 x10e6/uL (4.3-5.7); RED CELL DISTRIBUTION WIDTH 14.6 % (11.7-14.4)
[2020-08-20 05:19] LABS: ANION GAP 12.7 mmol/L (8-16); CALCIUM 8.3 mg/dL (8.4-10.2); CREATININE, SERUM 0.82 mg/dL (0.72-1.25); POTASSIUM 3.7 mmol/L (3.5-5.1)
[2020-08-20 08:00] VITALS: BP 95/63
[2020-08-20 08:57] VITALS: BP 95/63
[2020-08-20] MEDS: BUSPIRONE HCL 5 MG TAB PO SCH (09:04)
[2020-08-20] MEDS: AMIODARONE HCL 200 MG TAB PO SCH (09:04)
[2020-08-20] MEDS: DIGOXIN 0.125 MG TAB PO SCH (09:05)
[2020-08-20] MEDS: APIXABAN 5 MG TABLET PO SCH (09:05)
[2020-08-20] MEDS: VENLAFAXINE HCL 75 MG CAPCR PO SCH (09:05)
[2020-08-20] MEDS: FUROSEMIDE 40 MG TAB PO SCH (09:05)
[2020-08-20] MEDS: LACOSAMIDE 50 MG TABLET PO SCH (09:06)
[2020-08-20] MEDS: SENNA-S TABLET PO SCH (09:06)
[2020-08-20] MEDS: Vancomycin IV 1 GM in SODIUM CHLORIDE 0.9% 250ML 250 ML IV SCH (09:09)
[2020-08-20] MEDS: METHYLPREDNISOLONE SOD SUCC 125 MG/2ML VIAL IV SCH (09:09)
[2020-08-20] MEDS: DILTIAZEM HCL ER 120 MG CAP PO SCH (09:18)
[2020-08-20 11:41] VITALS: BP 114/81
[2020-08-20] MEDS ORDERED: ELIQUIS5 MG PO (13:03)
[2020-08-20] MEDS ORDERED: AMIODARONE HCL200 MG PO (13:03)
[2020-08-20] MEDS ORDERED: LASIX40 MG PO (13:04)
[2020-08-20] MEDS ORDERED: DIGOXIN125 MCG PO (13:05)
[2020-08-20] MEDS ORDERED: PREDNISONE10 MG PO (13:05)
[2020-08-20] MEDS ORDERED: CARDIZEM CD180 MG PO (13:05)
[2020-08-20] MEDS ORDERED: K-DUR10 MEQ PO (13:09)
[2020-08-20] MEDS ORDERED: POTASSIUM CHLO20 ME1 PO (13:09)
[2020-08-20 16:00] VITALS: BP 123/78
== END 2020-08-20 16:48 | disposition home health service (06) | DRG 180 ==
LOC: ER 15:48 → ERHOLD 16:52 → ICU 23:55 → MED/SURG2 08-08 17:01
PROVIDERS: ADMIT Internal Medicine; ATTEND Internal Medicine
PROC: 0BBJ3ZX Excision of Left Lower Lung Lobe, Percutaneous Approach, Diagnostic (ICD-10-PCS; principal; 2020-08-05)
DX: C34.90 Malignant neoplasm of unspecified part of unspecified bronchus or lung (principal); J96.01 Acute respiratory failure with hypoxia; J18.9 Pneumonia, unspecified organism; I48.92 Unspecified atrial flutter; I31.3 Pericardial effusion (noninflammatory); J43.9 Emphysema, unspecified; N40.0 Benign prostatic hyperplasia without lower urinary tract symptoms; I15.8 Other secondary hypertension; E04.9 Nontoxic goiter, unspecified; Z74.09 Other reduced mobility; E66.9 Obesity, unspecified; Z68.35 Body mass index [BMI] 35.0-35.9, adult
CPT/HCPCS: 32408; 36415; 71045; 71046; 71250; 71260; 74470; 77012; 80048; 80053; 80162; 80202; 82550; 82553; 83880; 84443; 84484; 85025; 85379; 85610; 88305; 88342; 93005; 93306; 94640; 97139; 99152; 99153; 99251; 99285; J0456; J0696; J1160; J1650; J1940; J2250; J2920; J2930; J3010; J3370; J7050; J7512; Q9967

== ENCOUNTER 2020-09-17 12:31 | Inpatient (IN) | payer MEDICARE ==
[~2020-09-17] VITALS: Ht 182.9 cm; Wt 118.4 kg
[~2020-09-17 12:31] MED LIST changes: +ALBUTEROL0.63 MG/3 NEB; +AMIODARONE HCL200 MG PO; +BUSPIRONE HCL5 MG PO; +CARDIZEM CD180 MG PO; +DIGOXIN125 MCG PO; +ELIQUIS5 MG PO; +FAMOTIDINE20 MG; +FLUTICASONE PRO16 GM; +GABAPENTIN100 MG; +GABAPENTIN300 MG PO; +K-DUR10 MEQ PO; +LASIX40 MG PO; +MIRTAZAPINE15 MG PO; +MONTELUKAST SOD10 MG PO; +MULTIVITAMINS1 EAC6 PO; +POTASSIUM CHLO20 ME1 PO; +PREDNISONE10 MG PO; +SERTRALINE HCL50 MG; +TAMSULOSIN PO; +TRAZODONE HCL50 MG; +VENLAFAXINE HCL75 M2 PO; +VIMPAT50 MG; +VIMPAT50 MG PO; +VITAMIN D3 COM1 EACH PO; +VITAMIN D32400 UNIT/ PO
[2020-09-17] MEDS ORDERED: SODIUM CHLORIDE 0.9% 500ML 500 ML IV ONE (13:00)
[2020-09-17] MEDS ORDERED: ALBUTEROL/IPRATROPIUM 3 ML NEB NEB NR (13:00)
[2020-09-17 13:03] LABS: BASOPHILS # (AUTO) 0.2 (0.0-0.1); BASOPHILS % 0.6 % (0.0-1.0); EOSINOPHILS % 0.1 % (0.0-6.0); HEMATOCRIT 47.7 % (38.2-49.6); HEMOGLOBIN 15.8 g/dL (14.0-18.0); LYMPHOCYTES # (AUTO) 0.8 (1.0-3.2); LYMPHOCYTES % 2.8 % (18.0-39.1); MEAN CORPUSCULAR HEMOGLOBIN 27.9 pg (28-32); MEAN CORPUSCULAR HGB CONC 33.1 g/dL (31-35); MEAN CORPUSCULAR VOLUME 84.3 fL (81-99); MONOCYTES % 7.3 % (4.4-11.3); NEUTROPHILS # (AUTO) 23.7 (2.1-6.9); NEUTROPHILS % 84.1 % (38.7-80.0); PLATELET COUNT 307 x10e3/uL (140-360); RED BLOOD COUNT 5.66 x10e6/uL (4.3-5.7)
[2020-09-17 13:08] LABS: INR 2.12; PROTHROMBIN TIME 24.1 seconds (11.9-14.5)
[2020-09-17 13:09] LABS: PARTIAL THROMBOPLASTIN TIME 49.6 seconds (23.8-35.5)
[2020-09-17 13:18] LABS: ALBUMIN 2.5 g/dL (3.5-5.0); ALBUMIN/GLOBULIN RATIO 0.8 (0.8-2.0); ANION GAP 15.7 mmol/L (8-16); CALCIUM 7.8 mg/dL (8.4-10.2); CREATININE, SERUM 0.88 mg/dL (0.72-1.25)
[2020-09-17 13:19] LABS: POTASSIUM 2.7 mmol/L (3.5-5.1)
[2020-09-17] MEDS ORDERED: DEXAMETHASONE SOD PHOS 10 MG/1 ML VIAL IV NR (13:45)
[2020-09-17] MEDS ORDERED: CEFTRIAXONE 1 GM VIAL IM NR (13:45)
[2020-09-17 14:04] LABS: ABG PH 7.51 (7.35-7.45)
[2020-09-17 14:05] LABS: ABG HCO3 27 mmol/L (22-26); ABG PCO2 34 mmHg (35-45); ABG PO2 62 mmHg (80-105); ABG TCO2 28
[2020-09-17] MEDS ORDERED: POTASSIUM CHLORIDE 10MEQ EA PO ONE (14:15)
[2020-09-17] MEDS ORDERED: POTASSIUM CHLORIDE 20MEQ/100ML 100 ML IV ONE (14:15)
[2020-09-17] MEDS ORDERED: SODIUM CHLORIDE 0.9% 250ML 250 ML ONE (14:19)
[2020-09-17] MEDS ORDERED: ASPIRIN 81 MG CHEW TAB PO ONE (15:00)
[2020-09-17] MEDS ORDERED: IOPAMIDOL 370 MG/ML 200 ML INFUS..BTL INJ ONE (15:41)
[2020-09-17] MEDS ORDERED: SODIUM CHLORIDE 0.9% 50ML 50 ML ONE (15:41)
[2020-09-17 15:46] LABS: CLARITY,URINE SL CLOUDY (CLEAR); COLOR,URINE AMBER (YELLOW); KETONES,URINE NEGATIVE (NEGATIVE); LEUKOCYTE ESTERASE ,URINE NEGATIVE (NEGATIVE); NITRITE,URINE NEGATIVE (NEGATIVE); PROTEIN,URINE DIPSTICK NEGATIVE (NEGATIVE); URINE UROBILINOGEN 4 mg/dL (0.2 - 1)
[2020-09-17 15:58] LABS: AMORPHOUS SEDIMENT,URINE MANY (FEW); BACTERIA,URINE MODERATE /HPF; EPITHELIAL CELLS,URINE FEW /LPF
[2020-09-18 07:13] LABS: BASOPHILS # (AUTO) 0.1 (0.0-0.1); BASOPHILS % 0.5 % (0.0-1.0); HEMATOCRIT 45.9 % (38.2-49.6); HEMOGLOBIN 14.8 g/dL (14.0-18.0); LYMPHOCYTES # (AUTO) 0.9 (1.0-3.2); LYMPHOCYTES % 3.5 % (18.0-39.1); MEAN CORPUSCULAR HEMOGLOBIN 28.2 pg (28-32); MEAN CORPUSCULAR HGB CONC 32.2 g/dL (31-35); MEAN CORPUSCULAR VOLUME 87.6 fL (81-99); MONOCYTES # (AUTO) 1.9 (0.2-0.8); MONOCYTES % 7.7 % (4.4-11.3); NEUTROPHILS # (AUTO) 20.5 (2.1-6.9); NEUTROPHILS % 83.9 % (38.7-80.0); PLATELET COUNT 258 x10e3/uL (140-360); RED BLOOD COUNT 5.24 x10e6/uL (4.3-5.7); RED CELL DISTRIBUTION WIDTH 19.4 % (11.7-14.4)
[2020-09-18 07:48] LABS: ALBUMIN 2.8 g/dL (3.5-5.0); ALBUMIN/GLOBULIN RATIO 0.8 (0.8-2.0); ANION GAP 17.2 mmol/L (8-16); CALCIUM 9.5 mg/dL (8.4-10.2); CREATININE, SERUM 0.9 mg/dL (0.72-1.25); POTASSIUM 4.2 mmol/L (3.5-5.1)
[2020-09-18 08:07] LABS: CREATINE KINASE MB 2.2 ng/mL (0-5.0)
[2020-09-18] MEDS ORDERED: MORPHINE SULFATE INJ 4 MG/ML INJ 1ML IV STA (12:18)
[2020-09-18] MEDS ORDERED: ALBUTEROL/IPRATROPIUM 3 ML NEB NEB ONE (12:30)
[2020-09-18] MEDS ORDERED: PIPERACILLIN/TAZOBACTAM 3.375 GM in SODIUM CHLORIDE 0.9% 50ML 50 ML IV SCH (12:30)
[2020-09-18] MEDS: FUROSEMIDE INJ 10 MG/ML 2 ML VIAL IV SCH (13:00)
[2020-09-18] MEDS ORDERED: ALBUTEROL/IPRATROPIUM 3 ML NEB ONE (15:42)
[2020-09-18 15:55] LABS: CREATINE KINASE MB 2.2 ng/mL (0-5.0)
[2020-09-18] MEDS: PIPERACILLIN/TAZOBACTAM 3.375 GM in SODIUM CHLORIDE 0.9% 50ML 50 ML IV SCH (19:39)
[2020-09-18] MEDS: MORPHINE SULFATE INJ 4 MG/ML INJ 1ML IV PRN (19:48)
[2020-09-19] MEDS: PIPERACILLIN/TAZOBACTAM 3.375 GM in SODIUM CHLORIDE 0.9% 50ML 50 ML IV SCH ×4 (02:40→20:59)
[2020-09-19] MEDS: MORPHINE SULFATE INJ 4 MG/ML INJ 1ML IV PRN ×3 (02:50→15:38)
[2020-09-19 05:49] LABS: BASOPHILS # (AUTO) 0.1 (0.0-0.1); BASOPHILS % 0.5 % (0.0-1.0); EOSINOPHILS % 0.1 % (0.0-6.0); HEMOGLOBIN 15.1 g/dL (14.0-18.0); LYMPHOCYTES # (AUTO) 0.8 (1.0-3.2); MEAN CORPUSCULAR HEMOGLOBIN 27.8 pg (28-32); MEAN CORPUSCULAR HGB CONC 31.5 g/dL (31-35); MEAN CORPUSCULAR VOLUME 88.4 fL (81-99); MONOCYTES # (AUTO) 2.1 (0.2-0.8); MONOCYTES % 8.2 % (4.4-11.3); NEUTROPHILS # (AUTO) 21.9 (2.1-6.9); NEUTROPHILS % 85.1 % (38.7-80.0); PLATELET COUNT 262 x10e3/uL (140-360); RED BLOOD COUNT 5.43 x10e6/uL (4.3-5.7); RED CELL DISTRIBUTION WIDTH 19.4 % (11.7-14.4)
[2020-09-19 06:14] LABS: ANION GAP 18.1 mmol/L (8-16); CALCIUM 10.1 mg/dL (8.4-10.2); CREATININE, SERUM 0.92 mg/dL (0.72-1.25)
[2020-09-19 06:20] LABS: POTASSIUM 5.1 mmol/L (3.5-5.1)
[2020-09-19 07:27] LABS: ANISOCYTOSIS SLIGHT; LYMPHOCYTES % (MANUAL) 3 % (19-48); MONOCYTES % (MANUAL) 7 % (3.4-9.0); NEUTROPHILS % (MANUAL) 89 % (40-74); PLATELET ESTIMATE ADEQUATE; PLATELET MORPHOLOGY COMMENT NORMAL; RBC MORPHOLOGY COMMENT NORMAL
[2020-09-19] MEDS: FUROSEMIDE INJ 10 MG/ML 2 ML VIAL IV SCH (09:17)
[2020-09-19] MEDS: LACOSAMIDE 50 MG TABLET PO SCH (23:09)
[2020-09-19] MEDS: DIGOXIN 0.125 MG TAB PO SCH (23:10)
[2020-09-19] MEDS: AMIODARONE HCL 200 MG TAB PO SCH (23:10)
[2020-09-19] MEDS ORDERED: DIGOXIN 0.125 MG TAB ONE (23:17)
[2020-09-19] MEDS ORDERED: AMIODARONE HCL 200 MG TAB ONE (23:17)
[2020-09-20] MEDS: PIPERACILLIN/TAZOBACTAM 3.375 GM in SODIUM CHLORIDE 0.9% 50ML 50 ML IV SCH ×4 (02:17→21:30)
[2020-09-20] MEDS: MORPHINE SULFATE INJ 4 MG/ML INJ 1ML IV PRN ×2 (06:03→18:19)
[2020-09-20] MEDS: AMIODARONE HCL 200 MG TAB PO SCH (07:56)
[2020-09-20] MEDS: APIXABAN 5 MG TABLET PO SCH ×2 (07:56→16:56)
[2020-09-20] MEDS: VENLAFAXINE HCL 75 MG CAPCR PO SCH ×2 (07:56→16:56)
[2020-09-20] MEDS: FUROSEMIDE 40 MG TAB PO SCH ×2 (07:57→16:56)
[2020-09-20] MEDS: GABAPENTIN 300 MG CAP PO SCH ×2 (07:57→16:56)
[2020-09-20] MEDS: DIGOXIN 0.125 MG TAB PO SCH (07:57)
[2020-09-20] MEDS ORDERED: TAMSULOSIN HCL 0.4 MG CAP PO SCH (09:00)
[2020-09-20] MEDS ORDERED: DILTIAZEM HCL ER 120 MG CAP PO SCH (09:00)
[2020-09-20] MEDS ORDERED: PREDNISONE 10 MG TAB PO SCH (09:00)
[2020-09-20] MEDS ORDERED: MULTIVITAMINS/MINERALS TAB PO SCH (09:00)
[2020-09-20] MEDS: FUROSEMIDE INJ 10 MG/ML 2 ML VIAL IV SCH (09:00)
[2020-09-20] MEDS ORDERED: POTASSIUM CHLORIDE 20 MEQ TAB CR PO SCH (09:00)
[2020-09-20] MEDS: BUSPIRONE HCL 5 MG TAB PO SCH ×2 (09:00→16:56)
[2020-09-20] MEDS: LACOSAMIDE 50 MG TABLET PO SCH (11:15)
[2020-09-20] MEDS ORDERED: MONTELUKAST SODIUM 10 MG TAB PO SCH (21:00)
[2020-09-20] MEDS ORDERED: MIRTAZAPINE 15 MG TAB PO SCH (21:00)
[2020-09-20 23:16] VITALS: BP 103/79
[2020-09-21] MEDS: MORPHINE SULFATE INJ 4 MG/ML INJ 1ML IV PRN (00:31)
[2020-09-21 00:52] VITALS: BP 103/49
[2020-09-21 01:07] VITALS: BP 103/49
[2020-09-21] MEDS ORDERED: SODIUM CHLORIDE 0.9% 250ML 250 ML ONE (01:54)
== END 2020-09-21 07:24 | disposition expired | DRG 871 ==
LOC: ER 12:47 → ERHOLD 16:14 → MED/SURG2 09-21 00:02
DX: A41.9 Sepsis, unspecified organism (principal); J69.0 Pneumonitis due to inhalation of food and vomit; J18.9 Pneumonia, unspecified organism; J96.01 Acute respiratory failure with hypoxia; C34.90 Malignant neoplasm of unspecified part of unspecified bronchus or lung; C78.7 Secondary malignant neoplasm of liver and intrahepatic bile duct; C79.51 Secondary malignant neoplasm of bone; M84.58XA Pathological fracture in neoplastic disease, other specified site, initial encounter for fracture; E87.2 Acidosis; D72.823 Leukemoid reaction; I11.0 Hypertensive heart disease with heart failure; I50.9 Heart failure, unspecified; Z66 Do not resuscitate; Z20.822 Contact with and (suspected) exposure to COVID-19; I48.91 Unspecified atrial fibrillation; J43.9 Emphysema, unspecified
CPT/HCPCS: 36415; 36600; 71045; 71260; 80048; 80053; 81001; 82550; 82553; 82805; 83605; 83880; 84484; 85025; 85610; 85730; 87040; 93005; 94640; 94660; 94760; 99284; J0456; J0696; J1100; J1940; J2270; J2543; J3480; J7040; J7050; J7512; Q9967; U0002